=== PATIENT | male | born 1960 | race Caucasian/White ===

== ENCOUNTER → 2019-03-24 12:21 | Outpatient (CLI) | payer BC, SELFPAY ==
--- NOTE | ~2019-03-24 | US_ITS ---
EXAMINATION: US venous doppler LE DATE: 03/24/2019 13:01 INDICATION: Acute deep venous thrombosis of the right lower limb. TECHNIQUE: Grayscale ultrasound images without and with compression and Doppler ultrasound images of the bilateral lower extremity veins were obtained. COMPARISON: 08/21/2018 FINDINGS: There is persistent likely chronic deep venous thrombosis in the distal right popliteal vein and tibi operoneal trunk. The visualized portions of right common femoral vein, profunda (deep) femoral vein, femoral vein, proximal popliteal vein, posterior tibial veins, soleus vein, gastrocnemius vein and gr eater saphenous vein outflow are patent. The visualized portions of left common femoral vein, profunda femoral vein, femoral vein, popliteal v ein, peroneal trunk, posterior tibial veins, peroneal veins, soleus vein, gastrocnemius vein and grea ter saphenous vein outflow are patent. IMPRESSION: 1. Persistent chronic deep venous thrombosis within the distal right popliteal vein and tibioperonea l trunk. No deep venous thrombosis in the left lower limb or definitively new thrombosis in the right lower limb. Reviewed, dictated and finalized at location B. [employer] IMPRESSION: 1. Persistent chronic deep venous thrombosis within the distal right popliteal vein and tibioperoneal trunk. No deep venous thrombosis in the left lower limb or definitively new thrombosis in the right lower limb.
== END ==
PROVIDERS: Visit Provider Physician Assistant Medical
DX: I82.431 Acute embolism and thrombosis of right popliteal vein (principal)
CPT/HCPCS: 93970; G0365

== ENCOUNTER 2019-07-27 11:25 | Outpatient (CLI) | payer BC, SELFPAY ==
--- NOTE | ~2019-07-27 | XR_ITS ---
XR chest 2V DATE: 07/27/2019 11:54 INDICATION: Cough TECHNIQUE: PA and lateral views COMPARISON: None FINDINGS: Normal heart size. No hilar or mediastinal enlargement. Mild aortic unfolding. No pulmonary infiltrate or consolidation, pleural effusion or pulmonary vascular congestion or pneumo thorax. IMPRESSION: No active cardiopulmonary disease Reviewed, dictated and finalized at location A.
== END 2019-07-27 11:26 | disposition home or self-care (01) ==
PROVIDERS: PCP Family Medicine; Visit Provider Family Medicine
DX: R05 Cough (principal)
CPT/HCPCS: 71046

== ENCOUNTER 2019-12-25 10:58 | Outpatient (CLI) | payer BC, SELFPAY ==
--- NOTE | ~2019-12-25 | CT_ITS ---
EXAMINATION: CTA chest PE protocol DATE: 12/25/2019 12:04 INDICATION: Shortness of breath TECHNIQUE: Computed tomography (CT) pulmonary angiogram of the chest was performed with 100 mL Omnipa que-350 intravenous contrast. Additional 3D reconstructions utilizing coronal maximum intensity proje ction (MIP) were performed. Automated exposure control and iterative reconstruction technique were em ployed. The dose-length product was 934.81 mGy-cm. COMPARISON: None FINDINGS: Excellent contrast opacification of the pulmonary arteries. There is mild streak artifact from dense contrast in the superior vena cava and right atrium. Mild scattered respiratory motion artifact which does not significantly limit evaluation. Mild elevation of the left hemidiaphragm. No pulmonary embo lism. Mild mosaic attenuation in the dependent lower lobes consistent with atelectasis due to subopti mal inspiration with small regions of subsegmental air trapping. No pneumonia, pulmonary edema, pleur al effusion or pneumothorax. Heart size is normal. Atherosclerotic coronary artery calcific a cyst. N o pericardial effusion. No pathologically enlarged thoracic lymphadenopathy. 2.3 cm left thyroid nodu le. Visualized upper abdomen is unremarkable. Mild thoracic and mild to moderate lower cervical spond ylosis. IMPRESSION: 1. No pulmonary embolism. 2. Mild elevation of the left hemidiaphragm. 3. 2.3 cm left thyroid nodule. Consider thyroid ultrasound for risk stratification. Reviewed, dictated and finalized at location A. IMPRESSION: 1. No pulmonary embolism. 2. Mild elevation of the left hemidiaphragm. 3. 2.3 cm left thyroid nodule. Consider thyroid ultrasound for risk stratificat ion.
--- NOTE | ~2019-12-25 | US_ITS ---
EXAMINATION: US venous doppler [facility] DATE: 12/25/2019 11:43 INDICATION: Shortness of breath. Lower limb swelling. TECHNIQUE: Grayscale ultrasound images without and with compression and Doppler ultrasound images of the bilateral lower extremity veins were obtained. COMPARISON: None. FINDINGS: The visualized portions of right common femoral vein, profunda (deep) femoral vein, femoral vein, pop liteal vein, posterior tibial veins, peroneal veins, gastrocnemius vein and greater saphenous vein ou tflow are patent. The visualized portions of left common femoral vein, profunda femoral vein, femoral vein, popliteal v ein, posterior tibial veins, peroneal veins, gastrocnemius vein and greater saphenous vein outflow ar e patent. IMPRESSION: 1. No deep venous thrombosis in either lower limb. Reviewed, dictated and finalized at location A.
[2019-12-25 11:56] LABS: Estimated Glomerular Filt Rate > 60
[2019-12-25 12:22] LABS: Basophils Percent Auto 0.5 % (0.2-1.2); Eosinophils Absolute Auto 0.2 K/mm3 (0-0.3); Hemoglobin 14.7 g/dL (14.0-18.0); Immature Granulocyte Absolute 0.05 K/mm3 (0.00-0.031); Immature Granulocyte Percent A 0.7 % (0-0.5); Lymphocytes Absolute Auto 1.93 K/mm3 (0.9-3.2); Lymphocytes Percent Auto 26.2 % (18.3-44.2); Mean Corpuscular HGB Conc 33.4 g/dl (32-36); Mean Corpuscular Hemoglobin 30.5 pg (26-34); Mean Corpuscular Volume 91.3 fl (80-100); Mean Platelet Volume 9.5 fl (7.4-10.4); Monocytes Absolute Auto 0.6 K/mm3 (0.1-0.6); Monocytes Percent Auto 8.6 % (2.6-8.5); Neutrophils Absolute Auto 4.6 K/mm3 (1.3-6.7); Platelet Count Result 255 k/mm3 (150-375); Red Blood Count 4.82 M/mm3 (4.6-6.20); Red Cell Distribution Width 12.8 % (11.5-14.5); White Blood Count 7.4 K/mm3 (4.5-10.0)
[2019-12-25 12:32] LABS: INR 1.1; Prothrombin Time 14.1 Seconds (11.1-14.7)
[2019-12-25 12:37] LABS: Anion Gap 6 mmol/L (8-16); Blood Urea Nitrogen 18 mg/dL (9-20); Calcium 8.2 mg/dL (8.4-10.2); Carbon Dioxide 28 mmol/L (22-30); Chloride 105 mmol/L (98-107); Estimated Glomerular Filt Rate > 60; Glucose 139 mg/dL (75-110); Potassium 3.9 mmol/L (3.4-5.0); Sodium 139 mmol/L (137-145)
== END 2019-12-25 10:59 | disposition home or self-care (01) ==
PROVIDERS: PCP Family Medicine; Visit Provider Nurse Practitioner Family
DX: R06.02 Shortness of breath (principal); Z86.718 Personal history of other venous thrombosis and embolism; R60.0 Localized edema; E04.1 Nontoxic single thyroid nodule
CPT/HCPCS: 36415; 71275; 80048; 85025; 85380; 85610; 93970; Q9967

== ENCOUNTER 2021-04-19 14:07 | Outpatient (CLI) | payer OTHER, SELFPAY ==
--- NOTE | ~2021-04-19 | XR_ITS ---
EXAMINATION: [id number] EXAM DATE: 04/19/2021 14:28 INDICATION: Initial encounter following injury, with pain of the ribs. TECHNIQUE: Frontal projection of the upper left ribs, frontal projection of the lower left ribs, obli que projection of the left ribs. Frontal projection of the upper right ribs, frontal projection of t he lower right ribs, oblique projection of the right ribs, frontal and lateral chest x-ray(s) for int erpretation. Comparison is made to prior examination from 07/27/2019. FINDINGS: There are no displaced acute rib fractures identified. The lungs are clear. There are no pleural effusions. The cardiomediastinal silhouette is within normal limits. There is no pneumothor ax suspected. The bones and soft tissues are unremarkable. IMPRESSION: Unremarkable chest x-ray, rib examination. Reviewed, dictated and finalized at location A. [employer] EXPERT
== END 2021-04-19 14:08 | disposition home or self-care (01) ==
LOC: ANHIMG 14:12
PROVIDERS: PCP Family Medicine; Visit Provider Physician Assistant Medical
DX: R07.9 Chest pain, unspecified (principal)
CPT/HCPCS: 71111

== ENCOUNTER 2021-04-25 10:01 | Outpatient (CLI) | payer OTHER, SELFPAY ==
--- NOTE | 2021-04-25 10:07 | EST_ITS ---
Patient Info Name: Wily Ladd Age: 61 years : 1960 Gender: Male Ht: 72 in Wt: 314 lbs BSA: 2.75 m2 HR: 66 bpm BP: 171 / 96 mmHg Heart Rhythm: Sinus Rhythm Exam Date: 04/25/2021 10:58 AM Exam Location: [facility] Stress Patient Status: Outpatient Admit Date: 04/25/2021 Staff Ordering Physician: Yuliana Judd PAC Attending Provider: Yuliana Judd Exercise Technologist: Jacqueline Bob, CT Exercise Physician: Wilver Salcedo DO Exam Type: CA stress test treadmill Study Info Indications R07.9 - Chest pain, unspecified An exercise stress test was performed. Summary 1. 1. Negative German exercise stress test for ischemic ST changes by ECG criteria. He achieved 82% MPHR for age group. 2. 2. Poor functional capacity, achieving 4.5 METs of workload. 3. 3. Rapid HR response to exercise. 4. 4. Appropriate HR recovery at 1 minute post exercise. 5. 5. Baseline hypertension. 6. 6. No imaging with stress testing. 7. 7. Patient informed of the above results. Rest HR: 66 bpm Rest Sys BP: 171 mmHg Peak Sys BP: 152 mmHg Max Pred HR: 157 bpm Target HR: 133 bpm Termination Reason: Reached target heart rate or workload Cardiac Symptoms: Shortness of breath Total Time: 3 min : 29 sec Rest [place] BP: 96 mmHg Peak [place] BP: 82 mmHg Resting ECG Sinus rhythm, cannot r/o septal infarct, age indeterminate. Stress ECG No abnormal ST/T wave changes with exercise. Arrhythmias None. Report Signatures
== END 2021-04-25 10:02 | disposition home or self-care (01) ==
PROVIDERS: PCP Family Medicine; Visit Provider Physician Assistant Medical
DX: R07.9 Chest pain, unspecified (principal)
CPT/HCPCS: 93017

== ENCOUNTER 2021-07-25 13:56 | Outpatient (CLI) | payer OTHER, SELFPAY ==
--- NOTE | ~2021-07-25 | US_ITS ---
EXAMINATION: US venous doppler [facility] DATE: 07/25/2021 15:53 INDICATION: Right lower limb swelling. Lower limb ulcer. TECHNIQUE: Grayscale ultrasound images without and with compression and Doppler ultrasound images of the bilateral lower extremity veins were obtained. COMPARISON: Ultrasound 12/25/2019 FINDINGS: The visualized portions of right common femoral vein, profunda (deep) femoral vein, femoral vein, pop liteal vein, peroneal veins, posterior tibial veins, and greater saphenous vein outflow are patent. The visualized portions of left common femoral vein, profunda femoral vein, femoral vein, popliteal v ein, peroneal veins, posterior tibial veins, and greater saphenous vein outflow are patent. IMPRESSION: 1. No deep venous thrombosis. Reviewed, dictated and finalized at location A.
--- NOTE | ~2021-07-25 | US_ITS ---
EXAMINATION: US arterial ankle brachial ind DATE: 07/25/2021 15:54 INDICATION: Noncompression chronic ulcer. Diabetes. Dedicated hypercholesterolemia. Dedicated hypertension. Quadruple cardiac bypass. TECHNIQUE: Segmental pressures and plethysmographic and Doppler waveforms of the brachial and lower e xtremity arteries were obtained. COMPARISON: None. FINDINGS: Right and left brachial artery pressures of 134 mm Hg and 129 mm Hg, respectively, are concordant (no rmal difference <= 30 mmHg). The right ankle-brachial index (ALE) is 1.35 (normal >= 0.9-1.0). The right great toe-brachial index (TBI) is 0.83 (normal >= 0.65). Arterial Doppler waveforms are biphasic at the posterior tibial arter y and monophasic at the dorsalis pedis artery.. The left ALE is 1.27. The left TBI is 0.75. Arterial Doppler waveforms are biphasic at the posterior tibial artery and monophasic at the dorsalis pedis artery. IMPRESSION: Normal bilateral ALE and TBI measurements Reviewed, dictated and finalized at Location A. Reviewed, dictated and finalized at location A.
== END 2021-07-25 13:57 | disposition home or self-care (01) ==
LOC: ANHIMG 13:57
PROVIDERS: PCP Family Medicine
DX: L98.499 Non-pressure chronic ulcer of skin of other sites with unspecified severity (principal)
CPT/HCPCS: 93922; 93970